=== PATIENT | female | born 1995 | race Caucasian/White ===

== ENCOUNTER 2022-07-08 13:16 | Inpatient (IN) | payer BC ==
[2022-07-08] MEDS ORDERED: Methylergonovine 0.2 MG/1 ML Amp IM PRN (14:14)
[2022-07-08] MEDS ORDERED: Carboprost Tromethamine 250 MCG/1 ML Amp IM PRN (14:14)
[2022-07-08] MEDS ORDERED: Misoprostol 400 MCG (4 X 100 MCG TAB) RECTAL PRN (14:14)
[2022-07-08] MEDS ORDERED: Sodium Chloride 0.9% 10 ML Syringe FLUSH PRN (14:14)
[2022-07-08] MEDS ORDERED: Butorphanol 2 MG/ML SDV IVPUSH PRN (14:14)
[2022-07-08] MEDS ORDERED: Lidocaine 1% 30 ML SDV INJECT PRN (14:14)
[2022-07-08] MEDS ORDERED: Acetaminophen 325 MG Tab PO PRN (14:14)
[2022-07-08] MEDS ORDERED: fentaNYL 100 MCG/2 ML SDV IVPUSH PRN (14:14)
[2022-07-08] MEDS ORDERED: Tranexamic Acid 1,000 MG in Sodium Chloride 0.9% 100 ML IV PRN (14:14)
[2022-07-08] MEDS ORDERED: Lactated Ringers 1,000 ML IV ONE (14:14)
[2022-07-08] MEDS: Lactated Ringers 1,000 ML IV SCH ×2 (15:12→23:24)
[2022-07-08] MEDS: Oxytocin/Normal Saline 30 UNIT/500 ML BAG IV SCH (15:21)
[2022-07-08] MEDS: Ondansetron 4 MG/2 ML SDV IVPUSH PRN (20:54)
[2022-07-08] MEDS ORDERED: Sodium Bicarbonate 4.2% 2.5 MEQ/5 ML SDV ONE (21:59)
[2022-07-08] MEDS ORDERED: fentaNYL 100 MCG/2 ML SDV ONE (21:59)
[2022-07-09] MEDS ORDERED: Sodium Chloride 0.9% 10 ML SDV ONE
[2022-07-09] MEDS ORDERED: Dexmedetomidine 200 MCG/2 ML SDV IT ONE
[2022-07-09] MEDS ORDERED: fentaNYL 100 MCG/2 ML SDV ITHECAL ONE
[2022-07-09] MEDS: Ondansetron 4 MG/2 ML SDV IVPUSH PRN (02:36)
[2022-07-09] MEDS ORDERED: Sodium Bicarbonate 4.2% 2.5 MEQ/5 ML SDV ONE ×2 (03:29)
[2022-07-09] MEDS ORDERED: fentaNYL 100 MCG/2 ML SDV ONE (03:29)
[2022-07-09] MEDS: Oxytocin/Normal Saline 30 UNIT/500 ML BAG IV SCH (06:30)
[2022-07-09] MEDS ORDERED: Ibuprofen 800 MG Tab PO ONE (12:13)
[2022-07-09] MEDS ORDERED: Oxytocin 10 Units/1 ML SDV IM PRN (12:45)
[2022-07-09] MEDS ORDERED: Simethicone 80 MG Tab.Chew PO PRN (12:45)
[2022-07-09] MEDS ORDERED: Benzocaine/Menthol 20%-0.5% Spray 78 GM Cannister TOP PRN (12:45)
[2022-07-09] MEDS ORDERED: Witch Hazel Medicated Pads 100/Jar TOP PRN (12:45)
[2022-07-09] MEDS: Ibuprofen 600 MG Tab PO PRN (21:06)
[2022-07-09] MEDS: Docusate Sodium 100 MG Cap PO PRN (21:06)
[2022-07-10] MEDS: Ibuprofen 600 MG Tab PO PRN ×3 (06:52→22:27)
[2022-07-10] MEDS ORDERED: Measles, Mumps & Rubella Vaccine 0.5 ML SDV SUBCUT ONE (09:00)
[2022-07-10] MEDS ORDERED: Prenatal Multivitamin with Calcium/Folic Acid/Iron Tab PO SCH (09:00)
[2022-07-10] MEDS: Docusate Sodium 100 MG Cap PO PRN (10:06)
[2022-07-10] MEDS: Acetaminophen 325 MG Tab PO PRN (17:54)
[2022-07-11] MEDS: Ibuprofen 600 MG Tab PO PRN (08:00)
[2022-07-11] MEDS: Docusate Sodium 100 MG Cap PO PRN (08:01)
[2022-07-11] MEDS: Acetaminophen 325 MG Tab PO PRN (08:01)
== END 2022-07-11 10:10 | disposition home or self-care (01) | DRG 560 ==
LOC: DL.OBCHECK 13:16 → DL.OB 13:54 → OBSVTOIN 07-09 04:55 → DL.MS 07-10 08:46
PROVIDERS: ADMIT Family Medicine; ATTEND Family Medicine
PROC: 10E0XZZ Delivery of Products of Conception, External Approach (ICD-10-PCS; principal; 2022-07-09)
PROC: 0KQM0ZZ Repair Perineum Muscle, Open Approach (ICD-10-PCS; 2022-07-09)
PROC: 3E0P7VZ Introduction of Hormone into Female Reproductive, Via Natural or Artificial Opening (ICD-10-PCS; 2022-07-09)
PROC: 3E0R3BZ Introduction of Anesthetic Agent into Spinal Canal, Percutaneous Approach (ICD-10-PCS; 2022-07-09)
PROC: 00HU33Z Insertion of Infusion Device into Spinal Canal, Percutaneous Approach (ICD-10-PCS; 2022-07-09)
PROC: 3E0134Z Introduction of Serum, Toxoid and Vaccine into Subcutaneous Tissue, Percutaneous Approach (ICD-10-PCS; 2022-07-10)
DX: O42.92 Full-term premature rupture of membranes, unspecified as to length of time between rupture and onset of labor (principal); O70.1 Second degree perineal laceration during delivery; Z23 Encounter for immunization; Z3A.39 39 weeks gestation of pregnancy; Z37.0 Single live birth
CPT/HCPCS: 01967; 36415; 51701; 59409; 85027; 90471; 90707; A9270-GY; J2405; J2590; J3010; J3490; J7120